=== PATIENT | female | born 1990 | race Caucasian/White ===

== ENCOUNTER 2017-09-01 02:00 | Emergency (ER) | payer OTHER ==
[2017-09-01] MEDS: LORAZEPAM 1 MG TAB PO (02:30)
[2017-09-01 03:17] LABS: URINE BLOOD (Dip) POC 2+ (NEGATIVE); URINE GLUCOSE (Dip) POC Negative (NEGATIVE); URINE KETONES (Dip) POC 4+ (NEGATIVE); URINE LEUKOCYTE EST (Dip) POC Negative (NEGATIVE); URINE NITRITE (Dip) POC Negative (NEGATIVE); URINE TOTAL PROTEIN POC 3+ (NEGATIVE)
== END 2017-09-01 03:48 | disposition home or self-care (01) ==
LOC: FTE 02:00
DX: N93.8 Other specified abnormal uterine and vaginal bleeding (principal); I10 Essential (primary) hypertension
CPT/HCPCS: 71045; 81003; 81025; 87086; 93005; 99284-25